=== PATIENT | female | born 1970 | race Caucasian/White ===

== ENCOUNTER 2020-08-16 09:36 | Emergency (ER) | payer SELFPAY ==
[2020-08-16 11:27] LABS: RED BLOOD COUNT 4.44 M/UL (4.00-5.10); WHITE BLOOD COUNT 8.1 K/UL (4.5-11.0)
[2020-08-16 12:00] LABS: BUN/CREATININE RATIO 19 (0-10)
[2020-08-16] MEDS ORDERED: BENTYL 20MG TAB20 MG PO (12:56)
[2020-08-16] MEDS ORDERED: ZOFRAN4 MG PO (12:56)
== END 2020-08-16 13:21 | disposition home or self-care (01) ==
LOC: ER1 09:36
PROVIDERS: Physician Assistant
DX: R10.12 Left upper quadrant pain (principal); R10.32 Left lower quadrant pain; R11.0 Nausea; R19.7 Diarrhea, unspecified; K21.9 Gastro-esophageal reflux disease without esophagitis
CPT/HCPCS: 80053; 81001; 82150; 83690; 85025; 96374; 96375; 99284; J2270; J2405; Q9967

== ENCOUNTER 2020-09-03 03:04 | Emergency (ER) | payer SELFPAY ==
[~2020-09-03 03:04] MED LIST: BENTYL 20MG TAB20 MG PO; ZOFRAN4 MG PO
[2020-09-03 04:52] LABS: HEMOGLOBIN 14.6 gm/dl (12.3-15.3); RED BLOOD COUNT 4.22 M/UL (4.00-5.10); WHITE BLOOD COUNT 10.4 K/UL (4.5-11.0)
[2020-09-03 05:11] LABS: BUN/CREATININE RATIO 16 (0-10)
[2020-09-03] MEDS ORDERED: CEFPODOXIME PR200 MG PO (06:50)
[2020-09-03] MEDS ORDERED: ZOFRAN ODT 4 MG4 MG PO (06:50)
[2020-09-03] MEDS ORDERED: TORADOL 10 MG T10 MG PO (06:50)
== END 2020-09-03 08:22 | disposition home or self-care (01) ==
LOC: ER1 03:04
PROVIDERS: Student in an Organized Health Care Education/Training Program
DX: N13.2 Hydronephrosis with renal and ureteral calculous obstruction (principal); Z88.1 Allergy status to other antibiotic agents
CPT/HCPCS: 80053; 81001; 82803; 83605; 83690; 84703; 85025; 87086; 96374; 96375; 99284; J0696; J2270; J2405; J7030; J7120; Q9967